=== PATIENT | male | born 1970 | race Two or more races ===

== ENCOUNTER 2024-02-23 12:08 | Emergency (ER) | payer BC | END 2024-02-23 13:39 | disposition home or self-care (01) | LOC: MW.ED 12:08 | DX: S93.401A Sprain of unspecified ligament of right ankle, initial encounter (principal); Z79.899 Other long term (current) drug therapy; F17.210 Nicotine dependence, cigarettes, uncomplicated; X50.1XXA Overexertion from prolonged static or awkward postures, initial encounter; Y93.02 Activity, running; Z75.8 Other problems related to medical facilities and other health care | CPT/HCPCS: 73610-26-RT; 73610-RT; 99283 ==